=== PATIENT | female | born 1995 | race African-American/Black ===

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

== ENCOUNTER 2017-02-13 13:17 | Emergency (ER) | payer SELFPAY ==
[2017-02-13] MEDS: IPRATRPIUM/ALBUTEROL 0.5/2.5MG 3 ML NEBU. NEB (15:25)
[2017-02-13] MEDS: predniSONE 20 MG TABLET PO (15:56)
[2017-02-14 06:53] LABS: URINE HCG POC HCG NEGATIVE (Negative)
== END 2017-02-13 16:12 | disposition home or self-care (01) ==
LOC: ER 13:17
DX: J20.9 Acute bronchitis, unspecified (principal)
CPT/HCPCS: 81025; 94640; 99283-25; J7512; J7620

== ENCOUNTER 2017-09-02 23:15 | Emergency (ER) | payer SELFPAY | END 2017-09-02 23:30 | disposition home or self-care (01) | LOC: ER 23:30 | DX: S01.112D Laceration without foreign body of left eyelid and periocular area, subsequent encounter (principal); X58.XXXD Exposure to other specified factors, subsequent encounter | CPT/HCPCS: 99281 ==

== ENCOUNTER 2020-03-13 00:47 | Emergency (ER) | payer SELFPAY ==
[~2020-03-13] VITALS: Ht 167.6 cm; Wt 66.8 kg
[~2020-03-13 00:47] MED LIST changes: +ALBU2.5V8 INH; +AZIT250T6 PO; +BENZ100C PO; +PRED20TA PO
[2020-03-13 00:49] VITALS: BP 115/54
[2020-03-13] MEDS ORDERED: AMOX500C PO (01:15)
[2020-03-13] MEDS ORDERED: TRAM-48 PO (01:15)
--- NOTE | 2020-03-13 01:23 | ED.ADGEN ---
Past Medical History Past Medical History: No Pertinent History Past Surgical History: Other Additional Past Surgical Histo: ORIF R ARM Smoking Status: Current Some Day Smoker Alcohol Use: None Drug Use: Marijuana General Adult EDM: Chief Complaint: Toothache HPI: HPI: Patient is a 24-year-old female who presents to the emergency room complaining of dental pain in the left lower mouth. Patient has had extensive dental work done and is supposed to get her wisdom teeth removed. She states that she did go see a dentist about this 3 months ago however she has not followed up with them. She started having pain over the last couple weeks intermittently. She states the pain became severe this evening. She denies any drainage or fever. Review of Systems: Review of Systems: Complete ROS is negative unless otherwise documented in HPI Allergies: Allergies: Allergies Coded Allergies Type Severity Reaction Last Updated Verified No Known Drug Allergies 07/08/15 No Physical Exam: PE: General: Awake, alert, NAD. Well Nourished, well hydrated. Cooperative HEENT: Atraumatic, EOMI, PERRL, airway patent, moist oral mucosa, bad dentition, tenderness along the left lower gumline without any fluctuance or signs of obvious abscess, multiple dental fillings Neck: Supple, trachea midline MSK: No obvious deformities Skin: Warm, dry, intact Neuro: A&O x3, speech NL, sensory and motor grossly intact, no focal deficits Psych: Normal affect, normal mood, not suicidal or homicidal EKG: EKG: [] Heart Score: Risk Factors: Risk Factors: DM, Current or recent (<one month) smoker, HTN, HLP, family history of CAD, obesity. Risk Scores: Score 0 - 3: 2.5% MACE over next 6 weeks - Discharge Home Score 4 - 6: 20.3% MACE over next 6 weeks - Admit for Clinical Observation Score 7 - 10: 72.7% MACE over next 6 weeks - Early Invasive Strategies Radiology/Procedures: Radiology/Procedures: [] Course & Med Decision Making: Course & Med Decision Making Pertinent Labs and Imaging studies reviewed. (See chart for details) Patient is a 24-year-old female who presents to the emergency room complaining of tooth pain. Patient does have some tenderness but no signs of a drainable abscess. We will place her on amoxicillin. I have discussed with her that it is very important that she follows up with a dentist for further care. We will provide her with tramadol. I have discussed with her that no further narcotics will be provided here in the emergency room for tooth pain. Patient's test results and vitals while in the ED were fully reviewed and discussed with the patient. Patient is stable and at this time does not need admission to the hospital. We have discussed strict return precautions and the importance of following up with their Primary Care Physician. Patient stated understanding and was given an opportunity to ask any questions. Patient is in agreement with plan. Garrett Disclaimer: Garrett Disclaimer: This electronic medical record was generated, in whole or in part, using a voice recognition dictation system. Departure Departure Impression: Primary Impression: Dental infection Disposition: 01 HOME SELF CARE/HOMELESS Condition: STABLE Referrals: NO PCP (PCP) Patient Instructions: Dental Pain Scripts Tramadol Hcl (ULTRAM) 50 Mg Tablet 1 TAB PO PRN BID PRN for pain MDD 2 Tablet(s) for 30 Days, #6 TAB 0 Refills Prov: CITLALI CAMACHO MD 03/13/20 Amoxicillin (AMOXICILLIN) 500 Mg Capsule 1 CAP PO Q8HRS for infection for 10 Days, #30 CAP Prov: CITLALI CAMACHO MD 03/13/20 CITLALI CAMACHO MD Mar 13, 2020 01:23
== END 2020-03-13 02:11 | disposition home or self-care (01) ==
LOC: ER 00:47
DX: K04.7 Periapical abscess without sinus (principal); F17.200 Nicotine dependence, unspecified, uncomplicated
CPT/HCPCS: 99283

== ENCOUNTER 2020-05-18 12:47 | Emergency (ER) | payer SELFPAY ==
[~2020-05-18] VITALS: Ht 167.6 cm; Wt 63.6 kg
[~2020-05-18 12:47] MED LIST changes: +AMOX500C PO; +TRAM-48 PO
[2020-05-18] MEDS ORDERED: cefTRIAXone IV Push 1 GM VIAL. IVP ONE (13:00)
[2020-05-18 13:03] LABS: BILIRUBIN,URINE NEGATIVE (NEG); CLARITY,URINE CLOUDY; COLOR,URINE YELLOW; NITRITE,URINE NEGATIVE (NEG); PH,URINE 6.5 (<5.0-8.0); PROTEIN,URINE NEGATIVE (NEG-TRACE)
[2020-05-18 13:05] VITALS: BP 118/64
[2020-05-18 13:16] LABS: BACTERIA,URINE FEW /HPF (0-FEW); WBC,URINE >40 /HPF (0-4)
[2020-05-18 13:17] LABS: TRICHOMONAS,URINE PRESENT
--- NOTE | 2020-05-18 13:22 | PHYS DOC ---
Past Medical History Past Medical History: No Pertinent History Past Surgical History: Other Additional Past Surgical Histo: ORIF R ARM Smoking Status: Current Every Day Smoker Alcohol Use: None Drug Use: Marijuana General Adult EDM: Chief Complaint: SEXUALLY TRANSMITTED DISEASE HPI: HPI: Patient is a 25 year old female who presents to the ED today for STD treatment. Patient significant other was evaluated and treated for STDs. Patient denies symptoms, denies any chance she is . Review of Systems: Review of Systems: Constitutional: Denies fever or chills. [] GI: Denies abdominal pain, nausea, vomiting, bloody stools or diarrhea. [] : Request for STD treatment. Denies dysuria. [] Musculoskeletal: Denies back pain or joint pain. [] Integument: Denies rash. [] Neurologic: Denies headache, focal weakness or sensory changes. [] Psychiatric: Denies depression or anxiety. [] Heart Score: C/O Chest Pain: N/A Risk Factors: Risk Factors: DM, Current or recent (<one month) smoker, HTN, HLP, family history of CAD, obesity. Risk Scores: Score 0 - 3: 2.5% MACE over next 6 weeks - Discharge Home Score 4 - 6: 20.3% MACE over next 6 weeks - Admit for Clinical Observation Score 7 - 10: 72.7% MACE over next 6 weeks - Early Invasive Strategies Current Medications: Current Medications Medications (Trade) Dose Ordered Sig/Tuan Start Time Stop Time Status Last Admin Dose Admin Ceftriaxone Sodium (Rocephin) 1 gm 1X ONCE 05/18/20 13:00 05/18/20 13:01 DC Allergies: Allergies: Allergies Coded Allergies Type Severity Reaction Last Updated Verified No Known Drug Allergies 07/08/15 No Physical Exam: PE: Constitutional: Well developed, well nourished, no acute distress, non-toxic appearance. []] Abdomen: Bowel sounds normal, soft, no tenderness, no masses, no pulsatile masses. [] Skin: Warm, dry, no erythema, no rash. [] Back: No tenderness, no CVA tenderness. [] Extremities: No tenderness, no cyanosis, no clubbing, ROM intact, no edema. [] Neurologic: Alert and oriented X 3, normal motor function, normal sensory function, no focal deficits noted. [] Psychologic: Affect normal, judgement normal, mood normal. [] Current Patient Data: Labs: Laboratory Tests Test 05/18/20 12:54 05/18/20 12:56 Urine Collection Type Unknown Urine Color Yellow Urine Clarity Cloudy Urine pH 6.5 (<5.0-8.0) Urine Specific Bradley 1.020 (1.000-1.030) Urine Protein Negative mg/dL (NEG-TRACE) Urine Glucose (UA) Negative mg/dL (NEG) Urine Ketones (Stick) Negative mg/dL (NEG) Urine Blood Negative (NEG) Urine Nitrite Negative (NEG) Urine Bilirubin Negative (NEG) Urine Urobilinogen Dipstick 1.0 mg/dL (0.2 mg/dL) Urine Leukocyte Esterase Large (NEG) Urine RBC 1-2 /HPF (0-2) Urine WBC >40 /HPF (0-4) Urine Squamous Epithelial Cells Many /LPF Urine Bacteria Few /HPF (0-FEW) Urine Mucus Mod /LPF Urine Trichomonas Present POC Urine HCG, Qualitative Hcg negative (Negative) EKG: EKG: [] Radiology/Procedures: Radiology/Procedures: [] Course & Med Decision Making: Course & Med Decision Making Pertinent Labs and Imaging studies reviewed. (See chart for details) This is a 25-year-old female patient presenting to the ED today requesting STD treatment. Urine positive for UTI and trichomonas. Negative urine hCG. Given the new standard STD treatment including Flagyl. Education provided on STDs. Follow-up with the health department. Garrett Disclaimer: Garrett Disclaimer: This electronic medical record was generated, in whole or in part, using a voice recognition dictation system. Departure Departure Impression: Primary Impression: UTI (urinary tract infection) Qualified Codes: N39.0 - Urinary tract infection, site not specified Additional Impression: Trichomonal urethritis Disposition: HOME / SELF CARE / HOMELESS Condition: STABLE Referrals: NO PCP (PCP) follow up with the health department Patient Instructions: Trichomoniasis, Urinary Tract Infection Additional Instructions: You were evaluated in the emergency room and tested positive for trichomonas. This is a sexually transmitted disease. We treated you. He also have UTI. Please complete the rest of the antibiotics. Please follow-up with your primary care doctor in 1 week. You can also follow-up with the health department. Do not have any intercourse for a week. Use protection after that Scripts Metronidazole (FLAGYL) 500 Mg Tablet 1 TAB PO BID, #14 TAB Prov: BRAEDEN SANTANA APRN 05/18/20 Cephalexin (CEPHALEXIN) 500 Mg Tablet 1 TAB PO BID, #14 TAB Prov: BRAEDEN SANTANA HR CONSULTANT 05/18/20 Doxycycline Hyclate (DOXYCYCLINE HYCLATE) 100 Mg Tablet 1 TAB PO BID, #14 TAB Prov: BRAEDEN SANTANA APRN 05/18/20 BRAEDEN SANTANA APRN May 18, 2020 13:22
[2020-05-18] MEDS ORDERED: cefTRIAXone IM 500 MG VIAL. IM ONE (13:30)
[2020-05-18] MEDS ORDERED: CEPH500T PO (13:30)
[2020-05-18] MEDS ORDERED: metroNIDAZOLE 500 MG TABLET PO ONE (13:30)
[2020-05-18] MEDS ORDERED: DOXYCYCLINE HYCLATE 100 MG TABLET PO ONE (13:30)
[2020-05-18] MEDS ORDERED: DOXY100T PO (13:30)
[2020-05-18] MEDS ORDERED: METR500T PO (13:52)
== END 2020-05-18 13:48 | disposition home or self-care (01) ==
LOC: ER 12:47
DX: N39.0 Urinary tract infection, site not specified (principal); A59.03 Trichomonal cystitis and urethritis; F17.200 Nicotine dependence, unspecified, uncomplicated; F12.90 Cannabis use, unspecified, uncomplicated; Z98.890 Other specified postprocedural states
CPT/HCPCS: 81001; 81025; 87491; 87591; 96372; 99283; J0696

== ENCOUNTER 2020-07-03 17:30 | Emergency (ER) | payer SELFPAY ==
[~2020-07-03] VITALS: Ht 167.6 cm; Wt 65.5 kg
[~2020-07-03 17:30] MED LIST changes: +CEPH500T PO; +DOXY100T PO; +METR500T PO
--- NOTE | 2020-07-03 19:23 | ED.ADGEN ---
Past Medical History Past Medical History: No Pertinent History Past Surgical History: Other Additional Past Surgical Histo: RIGHT ARM Fx Smoking Status: Former Smoker Alcohol Use: None Drug Use: Marijuana General Adult EDM: Chief Complaint: ABDOMINAL PAIN IN HPI: HPI: Patient is a 25 year old G1 at approximately 4 weeks gestational age based on LMP of June 01. Patient states took a urine test 1 week ago and was positive. Patient states for the past 3 days she is of intermittent left lower quadrant abdominal cramping. Denies any spotting, abnormal vaginal discharge, urinary complaints other than frequency. Patient was treated for urinary tract infection last month that she complete her course of antibiotics. Review of Systems: Review of Systems: All other systems within normal limits except for as noted in the HPI Allergies: Allergies: Allergies Coded Allergies Type Severity Reaction Last Updated Verified No Known Drug Allergies 07/08/15 No Physical Exam: PE: Constitutional: Well developed, well nourished, no acute distress, non-toxic appearance. [] HENT: Normocephalic, atraumatic, bilateral external ears normal, nose normal. [] Eyes: PERRLA, conjunctiva normal, no discharge. [] Neck: No rigidity, supple, no stridor. [] Cardiovascular: Regular rate and rhythm, brisk cap refill [] Lungs & Thorax: Non labored symmetric respirations, no tachypnea or respiratory distress [] Abdomen: Soft, nondistended, left lower quadrant tenderness without guarding or rebound.. Skin: Warm, dry, no erythema, no rash. [] Back: Unremarkable Extremities: No deformities, range of motion grossly intact, no lower extremity edema [] Neurologic: Alert and oriented X 3, no focal deficits noted. [] Psychologic: Affect normal, judgement normal, mood normal. [] Current Patient Data: Labs: Laboratory Tests Test 07/03/20 17:40 07/03/20 17:47 07/03/20 20:12 Urine Collection Type Unknown Urine Color Yellow Urine Clarity Clear Urine pH 7.0 (<5.0-8.0) Urine Specific [place] 1.020 (1.000-1.030) Urine Protein Negative mg/dL (NEG-TRACE) Urine Glucose (UA) Negative mg/dL (NEG) Urine Ketones (Stick) Negative mg/dL (NEG) Urine Blood Negative (NEG) Urine Nitrite Negative (NEG) Urine Bilirubin Negative (NEG) Urine Urobilinogen Dipstick 0.2 mg/dL (0.2 mg/dL) Urine Leukocyte Esterase Negative (NEG) Urine RBC 1-2 /HPF (0-2) Urine WBC 1-4 /HPF (0-4) Urine Squamous Epithelial Cells Mod /LPF Urine Bacteria Few /HPF (0-FEW) POC Urine HCG, Qualitative Hcg positive (Negative) White Blood Count 6.2 x10^3/uL (4.0-11.0) Red Blood Count 3.91 x10^6/uL (3.50-5.40) Hemoglobin 11.9 g/dL (12.0-15.5) L Hematocrit 34.9 % (36.0-47.0) L Mean Corpuscular Volume 89 fL (79-100) Mean Corpuscular Hemoglobin 31 pg (25-35) Mean Corpuscular Hemoglobin Concent 34 g/dL (31-37) Red Cell Distribution Width 13.2 % (11.5-14.5) Platelet Count 213 x10^3/uL (140-400) Neutrophils (%) (Auto) 67 % (31-73) Lymphocytes (%) (Auto) 23 % (24-48) L Monocytes (%) (Auto) 8 % (0-9) Eosinophils (%) (Auto) 1 % (0-3) Basophils (%) (Auto) 1 % (0-3) Neutrophils # (Auto) 4.2 x10^3/uL (1.8-7.7) Lymphocytes # (Auto) 1.4 x10^3/uL (1.0-4.8) Monocytes # (Auto) 0.5 x10^3/uL (0.0-1.1) Eosinophils # (Auto) 0.1 x10^3/uL (0.0-0.7) Basophils # (Auto) 0.0 x10^3/uL (0.0-0.2) Maternal Serum HCG Beta Subunit 112 mIU/mL (0-5) H Laboratory Tests 07/03/20 20:12 Microbiology 07/03/20 Wet Prep - Final, Complete Vital Signs: Vital Signs Date Time Temp Pulse Resp B/P (MAP) Pulse Ox O2 Delivery O2 Flow Rate FiO2 07/03/20 18:25 98.1 66 20 106/60 (75) 100 Room Air 98.1 EKG: EKG: [] Heart Score: C/O Chest Pain: No Risk Factors: Risk Factors: DM, Current or recent (<one month) smoker, HTN, HLP, family h istory of CAD, obesity. Risk Scores: Score 0 - 3: 2.5% MACE over next 6 weeks - Discharge Home Score 4 - 6: 20.3% MACE over next 6 weeks - Admit for Clinical Observation Score 7 - 10: 72.7% MACE over next 6 weeks - Early Invasive Strategies Radiology/Procedures: Radiology/Procedures: Exam: Ultrasound OB less than 14 weeks Indication: Left lower quadrant Technique: Real-time grayscale and color Doppler images of the pelvis were obtained by the department automatic steel tie adjuster. Comparisons: None FINDINGS: Uterus measures 9.0 x 4.9 x 4.9 cm. Endometrium measures 2.3 cm in thickness. No pole, yolk sac or gestational sac identified. Right ovary measures 3.9 x 2.0 x 1.8 cm. Left ovary measures 2.5 x 2.2 x 2.0 cm. Vascular flow identified in the ovaries bilaterally. No free fluid seen in the pelvis. IMPRESSION: No gestational sac, yolk sac or pole identified. Intrauterine gestational sac is not identified. Differential considerations include early IUP, failed IUP or nonvisualized ectopic . [] Course & Med Decision Making: Course & Med Decision Making Pertinent Labs and Imaging studies reviewed. (See chart for details) Exam: Chest one view INDICATION: CHF TECHNIQUE: Frontal view of the chest Comparisons: 05/23/2020 FINDINGS: Pacer with leads terminating the right atrium and ventricle. Heart is mildly enlarged. Prominence of the pulmonary artery is stable. Interstitial airspace disease in lungs, mildly increased. Stable cystic lesion at the left lateral costophrenic angle. IMPRESSION: Findings likely related to mild pulmonary edema [] Dragon Disclaimer: Dragon Disclaimer: This electronic medical record was generated, in whole or in part, using a voice recognition dictation system. Departure Departure Impression: Primary Impression: Abdominal pain during Disposition: HOME / SELF CARE / HOMELESS Condition: STABLE Referrals: NO PCP (PCP) HARSH STEPHENS MD Patient Instructions: Abdominal Pain During Additional Instructions: Your beta hCG today is 112. Follow-up with [facility] in 2 to 3 days to recheck. LULA GARCIA MD July 03, 2020 19:23
[2020-07-03 19:33] LABS: BILIRUBIN,URINE NEGATIVE (NEG); CLARITY,URINE CLEAR; COLOR,URINE YELLOW; NITRITE,URINE NEGATIVE (NEG); PROTEIN,URINE NEGATIVE (NEG-TRACE); UROBILINOGEN,URINE 0.2 mg/dL (0.2 mg/dL)
[2020-07-03 19:47] LABS: BACTERIA,URINE FEW /HPF (0-FEW)
[2020-07-03 20:17] LABS: BASO % 1 % (0-3); EOS # 0.1 x10^3/uL (0.0-0.7); EOS % 1 % (0-3); HEMATOCRIT 34.9 % (36.0-47.0); HEMOGLOBIN 11.9 g/dL (12.0-15.5); LYMPH # 1.4 x10^3/uL (1.0-4.8); LYMPH % 23 % (24-48); MEAN CORPUSCULAR HEMOGLOBIN 31 pg (25-35); MEAN CORPUSCULAR HGB CONC 34 g/dL (31-37); MEAN CORPUSCULAR VOLUME 89 fL (79-100); MONO # 0.5 x10^3/uL (0.0-1.1); MONO % 8 % (0-9); NEUT # 4.2 x10^3/uL (1.8-7.7); NEUT % 67 % (31-73); PLATELET COUNT 213 x10^3/uL (140-400); RED BLOOD COUNT 3.91 x10^6/uL (3.50-5.40); RED CELL DISTRIBUTION WIDTH 13.2 % (11.5-14.5); WHITE BLOOD COUNT 6.2 x10^3/uL (4.0-11.0)
--- NOTE | 2020-07-03 20:39 | RAD ---
Exam: Ultrasound OB less than 14 weeks Indication: Left lower quadrant Technique: Real-time grayscale and color Doppler images of the pelvis were obtained by the department violent crimes detective. Comparisons: None FINDINGS: Uterus measures 9.0 x 4.9 x 4.9 cm. Endometrium measures 2.3 cm in thickness. No pole, yolk sac or gestational sac identified. Right ovary measures 3.9 x 2.0 x 1.8 cm. Left ovary measures 2.5 x 2.2 x 2.0 cm. Vascular flow identified in the ovaries bilaterally. No free fluid seen in the pelvis. IMPRESSION: No gestational sac, yolk sac or pole identified. Intrauterine gestational sac is not identified . Differential considerations include early IUP, failed IUP or nonvisualized ectopic . Electronically signed by: Stephanie Membreno MD (07/03/2020 8:37 PM) [facility]
[2020-07-03 20:48] VITALS: BP 111/58
[2020-07-07 14:17] LABS: GC PROBE Negative (Negative)
== END 2020-07-03 21:15 | disposition home or self-care (01) ==
LOC: ER 17:30
DX: O46.91 Antepartum hemorrhage, unspecified, first trimester (principal); Z3A.01 Less than 8 weeks gestation of pregnancy
CPT/HCPCS: 76817; 81001; 81025; 84702; 85025; 87491; 87591; 99284; Q0111

== ENCOUNTER 2020-07-18 20:55 | Emergency (ER) | payer SELFPAY ==
[~2020-07-18] VITALS: Ht 167.6 cm; Wt 61.8 kg
[2020-07-18 22:20] LABS: BASO % 1 % (0-3); EOS # 0.1 x10^3/uL (0.0-0.7); EOS % 1 % (0-3); HEMATOCRIT 33.3 % (36.0-47.0); HEMOGLOBIN 11.5 g/dL (12.0-15.5); LYMPH # 1.8 x10^3/uL (1.0-4.8); LYMPH % 22 % (24-48); MEAN CORPUSCULAR HEMOGLOBIN 31 pg (25-35); MEAN CORPUSCULAR HGB CONC 34 g/dL (31-37); MEAN CORPUSCULAR VOLUME 89 fL (79-100); MONO # 0.8 x10^3/uL (0.0-1.1); MONO % 10 % (0-9); NEUT # 5.6 x10^3/uL (1.8-7.7); NEUT % 67 % (31-73); PLATELET COUNT 199 x10^3/uL (140-400); RED BLOOD COUNT 3.75 x10^6/uL (3.50-5.40); RED CELL DISTRIBUTION WIDTH 12.7 % (11.5-14.5); WHITE BLOOD COUNT 8.4 x10^3/uL (4.0-11.0)
[2020-07-18 22:23] LABS: BILIRUBIN,URINE NEGATIVE (NEG); CLARITY,URINE CLEAR; COLOR,URINE YELLOW; NITRITE,URINE NEGATIVE (NEG); PROTEIN,URINE NEGATIVE (NEG-TRACE); UROBILINOGEN,URINE 0.2 mg/dL (0.2 mg/dL)
--- NOTE | 2020-07-18 22:32 | PHYS DOC ---
Past Medical History Past Medical History: No Pertinent History Past Surgical History: Other Additional Past Surgical Histo: RIGHT ARM Fx Smoking Status: Former Smoker Alcohol Use: None Drug Use: Marijuana General Adult EDM: Chief Complaint: VAGINAL BLEEDING HPI: HPI: Patient is a 25 year old female patient 1 para 0 who presents to the ED today complaining of vaginal spotting or in , symptoms began today. Patient reports slight abdominal pain. Denies anything specifically exacerbating or relieving her symptoms. She states she had not made plans to see an LABEL REWINDER yet. She states she is 6 weeks last menstrual cycle was June 01. Review of Systems: Review of Systems: Constitutional: Denies fever or chills. [] Eyes: Denies change in visual acuity. [] HENT: Denies nasal congestion or sore throat. [] Respiratory: Denies cough or shortness of breath. [] Cardiovascular: Denies chest pain or edema. [] GI: Reports vaginal bleeding in with slight abdominal pain denies nausea, vomiting, bloody stools or diarrhea. [] : Denies dysuria. [] Musculoskeletal: Denies back pain or joint pain. [] Integument: Denies rash. [] Neurologic: Denies headache, focal weakness or sensory changes. [] Endocrine: Denies polyuria or polydipsia. [] Lymphatic: Denies swollen glands. [] Psychiatric: Denies depression or anxiety. [] Heart Score: C/O Chest Pain: N/A Risk Factors: Risk Factors: DM, Current or recent (<one month) smoker, HTN, HLP, family history of CAD, obesity. Risk Scores: Score 0 - 3: 2.5% MACE over next 6 weeks - Discharge Home Score 4 - 6: 20.3% MACE over next 6 weeks - Admit for Clinical Observation Score 7 - 10: 72.7% MACE over next 6 weeks - Early Invasive Strategies Allergies: Allergies: Allergies Coded Allergies Type Severity Reaction Last Updated Verified No Known Drug Allergies 07/08/15 No Physical Exam: PE: Constitutional: Well developed, well nourished, no acute distress, non-toxic appearance. [] HENT: Normocephalic, atraumatic, bilateral external ears normal, oropharynx moist, no oral exudates, nose normal. [] Eyes: PERRLA, EOMI, conjunctiva normal, no discharge. [] Neck: Normal range of motion, no tenderness, supple, no stridor. [] Cardiovascular:Heart rate regular rhythm, no murmur [] Lungs & Thorax: Bilateral breath sounds clear to auscultation [] Abdomen: Bowel sounds normal, soft, no tenderness, no masses, no pulsatile mass es. [] Pelvic exam External pelvic is normal, cervix is visualized, closed, no CMT, no adnexal tenderness, trace amount of brownish blood in the vaginal vault consistent with spotting Skin: Warm, dry, no erythema, no rash. [] Back: No tenderness, no CVA tenderness. [] Extremities: No tenderness, no cyanosis, no clubbing, ROM intact, no edema. [] Neurologic: Alert and oriented X 3, normal motor function, normal sensory function, no focal deficits noted. [] Psychologic: Affect normal, judgement normal, mood normal. [] Current Patient Data: Labs: Laboratory Tests Test 07/18/20 22:10 07/18/20 22:16 White Blood Count 8.4 x10^3/uL (4.0-11.0) Red Blood Count 3.75 x10^6/uL (3.50-5.40) Hemoglobin 11.5 g/dL (12.0-15.5) L Hematocrit 33.3 % (36.0-47.0) L Mean Corpuscular Volume 89 fL (79-100) Mean Corpuscular Hemoglobin 31 pg (25-35) Mean Corpuscular Hemoglobin Concent 34 g/dL (31-37) Red Cell Distribution Width 12.7 % (11.5-14.5) Platelet Count 199 x10^3/uL (140-400) Neutrophils (%) (Auto) 67 % (31-73) Lymphocytes (%) (Auto) 22 % (24-48) L Monocytes (%) (Auto) 10 % (0-9) H Eosinophils (%) (Auto) 1 % (0-3) Basophils (%) (Auto) 1 % (0-3) Neutrophils # (Auto) 5.6 x10^3/uL (1.8-7.7) Lymphocytes # (Auto) 1.8 x10^3/uL (1.0-4.8) Monocytes # (Auto) 0.8 x10^3/uL (0.0-1.1) Eosinophils # (Auto) 0.1 x10^3/uL (0.0-0.7) Basophils # (Auto) 0.0 x10^3/uL (0.0-0.2) POC Urine HCG, Qualitative Hcg positive (Negative) Laboratory Tests 07/18/20 22:10 Microbiology 07/18/20 Wet Prep - Final, Complete Vital Signs: Vital Signs Date Time Temp Pulse Resp B/P (MAP) Pulse Ox O2 Delivery O2 Flow Rate FiO2 07/18/20 21:20 98.2 74 16 101/61 (74) 100 Room Air 98.2 EKG: EKG: [] Radiology/Procedures: Radiology/Procedures: [] Course & Med Decision Making: Course & Med Decision Making Pertinent Labs and Imaging studies reviewed. (See chart for details) This is a 35-year-old female patient presenting to the ED today with vaginal spotting in . She is a 1 para 0. Currently 6 weeks . Preliminary OB ultrasound noted for an IUP 6 weeks 2 days. Heart rate 113. Positive for Trichomonas and treated Blood group A+ Urine positive for UTI, discharged on cephalexin. Provided pelvic rest instructions and follow-up with OB. She states she will follow up with [facility] Garrett Disclaimer: Garrett Disclaimer: This electronic medical record was generated, in whole or in part, using a voice recognition dictation system. Departure Departure Impression: Primary Impression: Trichomonal urethritis Additional Impressions: Threatened miscarriage UTI (urinary tract infection) Qualified Codes: N39.0 - Urinary tract infection, site not specified Disposition: HOME / SELF CARE / HOMELESS Condition: STABLE Referrals: NO PCP (PCP) please follow up with your OBGYN next week Patient Instructions: Threatened Miscarriage, [id number], Trichomoniasis- Brief, Urinary Tract Infection Additional Instructions: You were evaluated in the emergency room, you are 6 weeks 2 days . You also have trichomonas and urinary tract infection. Trichomonas is a sexually transmitted disease. We treated you in the emergency room, please ensure your partner gets treated. Do not have intercourse until this bleeding has stopped and you have been seen by an LABEL REWINDER. Do not do any strenuous activities until seen by the LABEL REWINDER. Scripts Cephalexin (CEPHALEXIN) 500 Mg Tablet 1 TAB PO BID, #14 TAB Prov: BRAEDEN SANTANA APRN 07/18/20 BRAEDEN SANTANA APRN Jul 18, 2020 22:32
[2020-07-18 22:34] LABS: CALCIUM 8.6 mg/dL (8.5-10.1); CREATININE 0.8 mg/dL (0.6-1.0); GFR 107.6; POTASSIUM 3.4 mmol/L (3.5-5.1)
[2020-07-18 22:40] LABS: BACTERIA,URINE FEW /HPF (0-FEW); RBC,URINE OCC /HPF (0-2); TRICHOMONAS,URINE PRESENT
[2020-07-18 22:42] LABS: ALBUMIN 3.8 g/dL (3.4-5.0); ALBUMIN/GLOBULIN RATIO 1.2 (1.0-1.7); TOTAL BILIRUBIN 0.3 mg/dL (0.2-1.0); TOTAL PROTEIN 6.9 g/dL (6.4-8.2)
[2020-07-18] MEDS ORDERED: AZITHROMYCIN 250 MG TABLET. PO ONE (22:45)
[2020-07-18] MEDS ORDERED: metroNIDAZOLE 500 MG TABLET PO ONE (22:45)
[2020-07-18] MEDS ORDERED: cefTRIAXone IV Push 1 GM VIAL. IVP ONE (22:45)
[2020-07-18] MEDS ORDERED: CEPH500T PO (22:55)
--- NOTE | 2020-07-18 22:57 | RAD ---
Exam: Ultrasound OB less than 14 weeks Indication: Vaginal bleeding Technique: Real-time grayscale and color Doppler images of the pelvis were obtained by the department adult probation officer. Comparisons: 07/03/2020 FINDINGS: Uterus measures 10 x 6.8 x 5.8 cm. Within the endometrium there is a gestational sac with internal yo lk sac and pole. Pajaros-rump length is 5 mm corresponding to 6 weeks 2 days gestation. hea rt rate measured at 113 bpm. Right ovary measures 2.8 x 1.4 x 1.2 cm. Left ovary measures 3.9 x 2.7 x 2.3 cm. Vascular flow identified in the ovaries bilaterally. No free fluid identified in the pelvis. IMPRESSION: 1. Single live intrauterine gestation of 6 weeks 5 days by LMP with concordant ultrasound. 2. Dedicated survey is recommended at 18-20 weeks gestation Electronically signed by: Stephanie Membreno MD (07/18/2020 10:54 PM) [facility]
[2020-07-18] MEDS ORDERED: ONDANSETRON ODT 4 MG TAB.RAPDIS. PO ONE (23:30)
[2020-07-18 23:46] VITALS: BP 142/90
[2020-07-20 13:15] LABS: GC PROBE Negative (Negative)
== END 2020-07-18 23:45 | disposition home or self-care (01) ==
LOC: ER 20:55
DX: O20.0 Threatened abortion (principal); O23.41 Unspecified infection of urinary tract in pregnancy, first trimester; O98.311 Other infections with a predominantly sexual mode of transmission complicating pregnancy, first trimester; A59.03 Trichomonal cystitis and urethritis; Z3A.01 Less than 8 weeks gestation of pregnancy
CPT/HCPCS: 36415; 76817; 80053; 81001; 81025; 84702; 85025; 86850; 86900; 86901; 87086; 87491; 87591; 96374; 99284; J0696; Q0111

== ENCOUNTER 2020-07-22 23:35 | Emergency (ER) | payer SELFPAY ==
[~2020-07-22] VITALS: Ht 167.6 cm; Wt 62.3 kg
--- NOTE | 2020-07-23 01:34 | PHYS DOC ---
Past Medical History Past Medical History: STD, UTI Past Surgical History: Other Additional Past Surgical Histo: RIGHT ARM Fx Smoking Status: Never Smoker Alcohol Use: None Drug Use: Marijuana General Adult EDM: Chief Complaint: VAGINAL BLEEDING HPI: HPI: Patient is a 25yo presenting for vaginal bleeding in . She was seen at our facility 4 days prior, had comprehensive workup at that time remarkable for UTI with RX Keflex given and US showing well appearing single fetus at 6w2d. Reports 2am waking up to urinate and reports "two small little clots" when wiping. She urinated the rest of the day without issue or reoccurrence until later this evening when she reports slight red/brown tinge present on toilet paper when wiping which concerned her prompting her to come back in for evaluation. She has been taking all antibiotics as scheduled. No fever, pain, lightheadedness, dysuria, or other concerning symptoms Review of Systems: Review of Systems: Fourteen body systems of review of systems have been reviewed. See HPI for pertinent positives and negative responses, other mar all other systems are negative, non-pertinent or non-contributory Heart Score: C/O Chest Pain: No Risk Factors: Risk Factors: DM, Current or recent (<one month) smoker, HTN, HLP, family history of CAD, obesity. Risk Scores: Score 0 - 3: 2.5% MACE over next 6 weeks - Discharge Home Score 4 - 6: 20.3% MACE over next 6 weeks - Admit for Clinical Observation Score 7 - 10: 72.7% MACE over next 6 weeks - Early Invasive Strategies Allergies: Allergies: Allergies Coded Allergies Type Severity Reaction Last Updated Verified No Known Drug Allergies 07/08/15 No Physical Exam: PE: Constitutional: Well developed, well nourished, no acute distress, non-toxic appearance. HENT: Normocephalic, atraumatic, bilateral external ears normal, oropharynx moist, no oral exudates, nose normal. Eyes: PERRLA, EOMI, conjunctiva normal, no discharge. Neck: Normal range of motion, no tenderness, supple, no stridor. Cardiovascular: Heart rate regular, sinus rhythm, no murmurs rubs or gallops Lungs & Thorax: Bilateral breath sounds clear to auscultation Abdomen: Bowel sounds normal, soft, no tenderness, no masses, no pulsatile masses. Nonsurgical abdomen, no peritoneal signs : Unremarkable external genitalia, unremarkable vaginal vault, no remarkable discharge present, cervical os closed Skin: Warm, dry, no erythema, no rash. Back: No tenderness, no CVA tenderness. Extremities: No tenderness, no cyanosis, no clubbing, ROM intact, no edema. Neurologic: Alert and oriented X 3, grossly normal motor & sensory function, no focal deficits noted. Psychologic: Anxious affect and mood Current Patient Data: Labs: Laboratory Tests Test 07/22/20 23:46 07/23/20 00:35 POC Urine HCG, Qualitative Hcg positive (Negative) Maternal Serum HCG Beta Subunit 05760 mIU/mL (0-5) H Vital Signs: Vital Signs Date Time Temp Pulse Resp B/P (MAP) Pulse Ox O2 Delivery O2 Flow Rate FiO2 07/22/20 23:57 98.1 70 16 115/56 (75) 100 Room Air 98.1 EKG: EKG: [] Radiology/Procedures: Radiology/Procedures: [] Course & Med Decision Making: Course & Med Decision Making VSS, HPI, PE and ER workup non-concerning. I reviewed "bleeding" likely physiologic discharge during vs related to current diagnosis of UTI. b-HCG doubled, cervical os closed She has follow-up with OBGYN next week to establish care, I advised her to keep this appointment. Continued supportive care and use of previously prescribed antibiotics recommended. Strict return precautions discussed prior to ER departure Garrett Disclaimer: Garrett Disclaimer: This electronic medical record was generated, in whole or in part, using a voice recognition dictation system. Departure Departure Impression: Primary Impression: Vaginal bleeding in patient at less than 20 weeks gestation Additional Impression: UTI (urinary tract infection) Disposition: 01 HOME / SELF CARE / HOMELESS Condition: STABLE Referrals: NO PCP (PCP) Additional Instructions: As discussed prior to your departure, your vital signs, physical examination and laboratory analysis was nonconcerning for any emergent or surgical issues. As discussed, your presenting symptoms were likely caused by normal discharge in or your known urinary tract infection. I did disclose this might be a threatened miscarriage but this is less likely. As such, continued supportive care practices such as taking vitamins, taking her previously prescribed medications to completion, eating a healthy diet, exercising daily and outpatient follow-up next week with ME[employer] TEAM MEMBER as advised. If any concerning signs or symptoms present prior to outpatient follow-up please don't hesitate to come back for repeat evaluation. It was a pleasure to take care of you and I wish you the best going forward EDIS LEMONS DO Jul 23, 2020 01:34
[2020-07-23 01:47] VITALS: BP 96/54
== END 2020-07-23 02:06 | disposition home or self-care (01) ==
LOC: ER 23:35
DX: O23.41 Unspecified infection of urinary tract in pregnancy, first trimester (principal); O46.91 Antepartum hemorrhage, unspecified, first trimester; Z3A.01 Less than 8 weeks gestation of pregnancy
CPT/HCPCS: 36415; 81025; 84702; 99285-25